=== PATIENT | male | born 1975 | race Caucasian/White ===

== ENCOUNTER 2018-10-28 18:10 | Emergency (ER) | payer MEDICAID ==
[~2018-10-28] VITALS: Ht 177.8 cm; Wt 258.5 kg
[2018-10-28] MEDS ORDERED: OXYC10TA49 PO (18:36)
[2018-10-28] MEDS ORDERED: WARF3TAB29 PO (18:36)
[2018-10-28] MEDS ORDERED: FURO80TA87 PO (18:36)
[2018-10-28] MEDS ORDERED: FUROSEMIDE 20 MG TABLET PO ONE (18:45)
--- NOTE | 2018-10-28 18:56 | NUR ---
Patient is resting comfortably on gurney on semi-ashley's position while using his personal electronic device, NAD.
[2018-10-28] MEDS ORDERED: FUROSEMIDE 20 MG TABLET ONE (18:58)
--- NOTE | 2018-10-28 19:18 | NUR ---
Patient is for U/S doppler to r/o DVT, endorsed to 7pm nurse Pancho
--- NOTE | 2018-10-28 19:30 | NUR ---
Patient does not wish to proceed with medical care recommended by Dr. Figueredo. Patient given information related to possible complications, up to and including , which could occur as a result of leaving the hospital at this time. Patient verbalizes understanding of risks involved due to leaving against medical advice. Patient has signed AMA form. Pt out of ER with steady gait, no acute signs of distress, VSS, all belongings taken.
[2018-10-28 19:45] VITALS: BP 144/81
== END 2018-10-28 19:45 | disposition left against medical advice (07) ==
LOC: ER 18:14
DX: R60.9 Edema, unspecified (principal); E66.01 Morbid (severe) obesity due to excess calories; G89.29 Other chronic pain; M79.604 Pain in right leg; M79.605 Pain in left leg; I50.9 Heart failure, unspecified; Z88.1 Allergy status to other antibiotic agents; Z91.041 Radiographic dye allergy status; Z79.01 Long term (current) use of anticoagulants; Z79.899 Other long term (current) drug therapy
CPT/HCPCS: A4663